=== PATIENT | male | born 1985 | race American Indian/Alaskan Native ===

== ENCOUNTER 2020-02-06 13:50 | Observation (INO) | payer MEDICAID ==
--- NOTE | 2020-02-06 15:04 | Emergency Department Report ---
ED Chest Pain HPI - General Chief Complaint: Chest Pain Stated Complaint: CHEST PAIN Time Seen by Provider: 02/06/20 15:02 Source: patient, EMS Mode of arrival: Stretcher Limitations: No Limitations - History of Present Illness Initial Comments: This is the 34-year-old male with a history of cerebral palsy and left hemiparesis/contraction. He states that he had the acute onset of chest pain at approximately 6 PM last night. Chest pain is persistent at that time he called EMS prior to arrival today. He states that it is a dull ache in the anterior chest which radiates down his right arm. He denies prior episodes of similar chest pain. He states that he was sweaty, short of breath and nauseated but did not vomit. He states he does not smoke. He denies a significant family history of coronary artery disease. He has no history of substance abuse. He has no history of venous thromboembolism. MD Complaint: chest pain -: Sudden (Acute but not abrupt) Onset: during rest Pain Location: substernal Pain Radiation: RUE Severity: moderate, severe Severity scale (0 -10): 8 Quality: aching Consistency: constant Improves With: nothing Worsens With: nothing re: nausea, diaphoresis (Sweating), dyspnea Treatments Prior to Arrival: none Aspirin use within the Past 7 Days: (0) No - Related Data Home Medications Medication Instructions Recorded Confirmed Last Taken Lacosamide [Vimpat] 200 mg PO BID 02/06/20 02/06/20 02/06/20 levETIRAcetam [Keppra TAB] 1,000 mg PO QDAY 02/06/20 02/06/20 02/06/20 levETIRAcetam [Keppra TAB] 1,500 mg PO QHS 02/06/20 02/06/20 02/05/20 Allergies Allergy/AdvReac Type Severity Reaction Status Date / Time No Known Allergies Allergy Verified 02/06/20 14:37 Heart Score - HEART Score History: Moderately suspicious EKG: Significant ST-depression Age: < 45 Risk factors: No known risk factors Troponin: < normal limit HEART Score: 3 - Critical Actions Critical Actions: 0-3 pts:0.9-1.7%risk of adverse cardiac event.Candidate for discharge ED Review of Systems ROS: Stated complaint: CHEST PAIN Other details as noted in HPI Constitutional: denies: chills, fever Eyes: denies: eye pain, eye discharge, vision change ENT: denies: ear pain, throat pain Respiratory: shortness of breath. denies: cough, wheezing Cardiovascular: chest pain. denies: palpitations Endocrine: no symptoms reported Gastrointestinal: nausea. denies: abdominal pain, diarrhea Genitourinary: denies: urgency, dysuria Musculoskeletal: denies: back pain, joint swelling, arthralgia Skin: denies: rash, lesions Neurological: denies: headache, weakness, paresthesias Psychiatric: denies: anxiety, depression Hematological/Lymphatic: denies: easy bleeding, easy bruising ED Past Medical Hx - Past Medical History Previous Medical History?: Yes Hx Seizures: Yes Additional medical history: cerebral palsy. LUE, LLE weakneess - Surgical History Past Surgical History?: No - Social History Smoking Status: Never Smoker Substance Use Type: None - Medications Home Medications: Home Medications Medication Instructions Recorded Confirmed Last Taken Type Lacosamide [Vimpat] 200 mg PO BID 02/06/20 02/06/20 02/06/20 History levETIRAcetam [Keppra TAB] 1,000 mg PO QDAY 02/06/20 02/06/20 02/06/20 History levETIRAcetam [Keppra TAB] 1,500 mg PO QHS 02/06/20 02/06/20 02/05/20 History ED Physical Exam - General Limitations: Physical Limitation General appearance: alert, in no apparent distress - Head Head exam: Present: atraumatic, normocephalic - Eye Eye exam: Present: normal appearance. Absent: scleral icterus - ENT ENT exam: Present: mucous membranes moist - Neck Neck exam: Present: normal inspection. Absent: tenderness, meningismus - Respiratory Respiratory exam: Present: normal lung sounds bilaterally. Absent: respiratory distress - Cardiovascular Cardiovascular Exam: Present: regular rate, normal rhythm. Absent: systolic murmur, diastolic murmur, rubs, gallop - GI/Abdominal GI/Abdominal exam: Present: soft, normal bowel sounds. Absent: distended, tenderness, guarding, rebound - Rectal Rectal exam: Present: deferred - Extremities Exam Extremities exam: Present: other (Contracted left upper extremity greater than left lower extremity) - Back Exam Back exam: Present: normal inspection - Neurological Exam Neurological exam: Present: alert, oriented X3, CN II-XII intact, motor sensory deficit - Psychiatric Psychiatric exam: Present: normal mood, flat affect - Skin Skin exam: Present: warm, dry, intact, normal color. Absent: rash ED Course Vital Signs 02/06/20 02/06/20 02/06/20 14:31 14:35 15:24 Temperature 98.6 F Pulse Rate 119 H 112 H 122 H Respiratory 25 H 20 26 H Rate Blood Pressure 130/92 Blood Pressure 130/92 [Left] O2 Sat by Pulse 97 92 100 Oximetry 02/06/20 02/06/20 02/06/20 15:30 16:00 16:30 Temperature Pulse Rate 110 H 86 132 H Respiratory 15 14 16 Rate Blood Pressure 136/94 121/86 126/104 Blood Pressure [Left] O2 Sat by Pulse 100 100 99 Oximetry - Reevaluation(s) Reevaluation #1: The patient's EKG was texted to the coil cleaner on-call Dr. Betancur. Serial EKG was obtained as well and reviewed. Force Variation Equipment Tender felt the EKGs were not consistent with STEMI. There was ST elevation in the anterior and inferolateral leads with no prior EKG for comparison. Possibility of pericarditis was entertained. A bedside echo was obtained emergently. This showed no pericardial fluid and no wall motion abnormality. It was concluded that the patient was not suffering from a STEMI. The cause of his chest pain is yet uncertain. He was admitted to the hospitalist service for further care and evaluation. 02/06/20 18:01 KATHIE score - Kathie Score Age > 65: (0) No Aspirin use within the Past 7 Days: (0) No 3 or more CAD Risk Factors: (0) No 2 or more Angina events in past 24 hrs: (0) No Known CAD with more than 50% Stenosis: (0) No Elevated Cardiac Markers: (0) No ST Deviation Greater than 0.5mm: (1) Yes KATHIE Score: 1 ED Medical Decision Making - Lab Data Result diagrams: 02/06/20 15:18 02/06/20 15:18 Laboratory Results - last 24 hr 02/06/20 02/06/20 02/06/20 15:18 15:18 15:18 WBC 8.4 RBC 6.22 H Hgb 14.3 Hct 45.0 MCV 72 L MCH 23 L MCHC 32 RDW 14.7 Plt Count 241 Lymph % (Auto) 8.0 L [place] % (Auto) 8.2 H Eos % (Auto) 2.5 Baso % (Auto) 0.3 Lymph # 0.7 L [place] # 0.7 Eos # 0.2 Baso # 0.0 Seg Neutrophils % 81.0 H Seg Neutrophils # 6.8 PT 13.6 INR 1.03 APTT 26.3 Sodium 140 Potassium 4.1 Chloride 98.2 Carbon Dioxide 29 Anion Gap 17 BUN 10 Creatinine 0.9 Estimated GFR > 60 BUN/Creatinine Ratio 11 Glucose 89 Calcium 10.3 H Total Bilirubin Direct Bilirubin Indirect Bilirubin AST ALT Alkaline Phosphatase Troponin T < 0.010 NT-Pro-B Natriuret Pep Total Protein Albumin Albumin/Globulin Ratio 02/06/20 02/06/20 15:18 15:18 WBC RBC Hgb Hct MCV MCH MCHC RDW Plt Count Lymph % (Auto) [place] % (Auto) Eos % (Auto) Baso % (Auto) Lymph # [place] # Eos # Baso # Seg Neutrophils % Seg Neutrophils # PT INR APTT Sodium Potassium Chloride Carbon Dioxide Anion Gap BUN Creatinine Estimated GFR BUN/Creatinine Ratio Glucose Calcium Total Bilirubin 0.70 Direct Bilirubin < 0.2 Indirect Bilirubin 0.5 AST 18 ALT 14 Alkaline Phosphatase 96 Troponin T NT-Pro-B Natriuret Pep 22.25 Total Protein 8.0 Albumin 4.8 Albumin/Globulin Ratio 1.5 - EKG Data -: EKG Interpreted by Me EKG shows normal: sinus rhythm Rate: tachycardia - EKG Data When compared to previous EKG there are: previous EKG unavailable Interpretation: other (Diffuse J-point elevation, or 2S ratio in V1 somewhat abnormal, rotation in the horizontal plane anterior, uncertain if early repolarization versus pericarditis versus other etiology) Critical care attestation.: If time is entered above; I have spent that time in minutes in the direct care of this critically ill patient, excluding procedure time. ED Disposition Clinical Impression: Abnormal EKG Chest pain Qualifiers: Chest pain type: unspecified Qualified Code(s): R07.9 - Chest pain, unspecified Cerebral palsy Qualifiers: Cerebral palsy type: unspecified type Qualified Code(s): G80.9 - Cerebral palsy, unspecified Disposition: OP ADMIT IP TO THIS HOSP Is pt being admited?: Yes Does the pt Need Aspirin: Yes Condition: Stable Instructions: Chest Pain (ED) Referrals: ROSA MOYA MD [Primary Care Provider] - 3-5 Days Time of Disposition: 18:08
[2020-02-06] MEDS ORDERED: ONDANSETRON 4 MG/2 ML INJ ONE (15:11)
[2020-02-06] MEDS ORDERED: MORPHINE 2 MG/1 ML INJ ONE (15:11)
[2020-02-06] MEDS ORDERED: MORPHINE 2 MG/1 ML INJ IV ONE ×2 (15:13→15:15)
[2020-02-06] MEDS ORDERED: ONDANSETRON 4 MG/2 ML INJ IV ONE ×2 (15:13→15:15)
--- NOTE | 2020-02-06 15:23 | Consultation ---
History of Present Illness Consult date: 02/06/20 Consult reason: chest pain History of present illness: Pt is a 34 y.o. AA male with a past medical hx of cerebral palsy and seizures. He is previously unknown to our practice. Pt presented c/o constant "stabbing" pain in the center of his chest w/radiation to RUE since yesterday around 6pm. Pain is reproducible upon palpation. No relieving factors. Pt denies palpitations, diaphoresis, dizziness, lightheadedness, syncope, SOB, cough, orthopnea/PND, edema, claudication, N/V, and fever/chills. Trop neg x 1. No acute ischemic changes on ECG. CXR reveals no acute findings. Past History Past Medical History: seizures, other (cerebral palsy) Social history: denies: smoking, alcohol abuse Medications and Allergies Allergies Allergy/AdvReac Type Severity Reaction Status Date / Time No Known Allergies Allergy Verified 02/06/20 14:37 Review of Systems Constitutional: no fever, no chills, no sweats Ears, nose, mouth and throat: no tinnitis, no nasal congestion, no nasal discharge, no epistaxis, no bleeding gums, no dysphagia, no sore throat Cardiovascular: chest pain, no orthopnea, no palpitations, no syncope, no lightheadedness Respiratory: no cough, no shortness of breath Gastrointestinal: no abdominal pain, no nausea, no vomiting, no diarrhea, no constipation Genitourinary Male: no dysuria, no flank pain Musculoskeletal: no frequent falls Integumentary: no rash, no wounds Neurological: no head injury, no numbness, no tingling, no seizures, no vertigo, no headaches Endocrine: no cold intolerance, no heat intolerance Hematologic/Lymphatic: no easy bruising, no easy bleeding Allergic/Immunologic: no urticaria Physical Examination Last Vital Signs Temp 98.6 F 02/06/20 14:35 Pulse 112 H 02/06/20 14:35 Resp 20 02/06/20 14:35 BP 130/92 02/06/20 14:35 Pulse Ox 92 02/06/20 14:35 General appearance: mild distress HEENT: Positive: EOMI, Normocephaly, Mucus Membranes Moist Neck: Positive: neck supple, trachea midline. Negative: JVD/HJR Cardiac: Positive: S1/S2. Negative: Audible Murmur Lungs: Positive: clear to auscultation (bilaterally) Neuro: Negative: Motor Function Intact, Coordination Normal Abdomen: Positive: Soft, Active Bowel Sounds. Negative: Tender Skin: Negative: Rash, Wound Musculoskeletal: No Pain Extremities: Present: upper extr. pulses, lower extr. pulses. Absent: edema Results 02/06/20 15:18 02/06/20 15:18 - Imaging and Cardiology Echo: pending EKG: report reviewed, image reviewed EKG interpretations - EKG Sinus rhythms and dysrhythmias: sinus tachycardia Repolarization changes or abnormalities: nonspecific abnormality, ST segment, and/or T wave (diffuse ST elev - ?pericarditis ) Assessment and Plan ACS ruled out. Initiate PO Cardizem 30mg q8h. Obtain echo. Plan for Lexiscan MPI stress test in AM. NPO after midnight. Pt seen in conjunction with Dr. Betancur, who agrees with the assessment and plan of care. - Patient Problems (1) Chest pain Onset Date: ~02/05/20 Status: Acute (2) Sinus tachycardia Status: Acute (3) Cerebral palsy Status: Chronic (4) Seizure disorder Status: Chronic
[2020-02-06] MEDS ORDERED: SODIUM CHLORIDE 0.9% 1000 ML 1,000 ML IV ONE (15:24)
[2020-02-06] MEDS ORDERED: ASPIRIN 325 MG TAB ONE (15:38)
[2020-02-06] MEDS ORDERED: ASPIRIN 325 MG TAB PO ONE (15:45)
--- NOTE | 2020-02-06 15:48 | XRay Report ---
CHEST 1 VIEW INDICATION: Chest Pain. COMPARISON: 03/16/2010 FINDINGS: SUPPORT DEVICES: None. HEART: Within normal limits. LUNGS/PLEURA: No acute air space or interstitial disease. ADDITIONAL FINDINGS: None. IMPRESSION: 1. No acute findings. Signer Name: Theron Deshpande MD Signed: 02/06/2020 3:44 PM Workstation Name: [id number]
[2020-02-06 15:53] LABS: Basophils % (Auto) 0.3 % (0.0-1.8); Eosinophils # (Auto) 0.2 K/mm3 (0.0-0.4); Eosinophils % (Auto) 2.5 % (0.0-4.3); Hemoglobin 14.3 gm/dl (11.8-15.2); Lymphocytes # (Auto) 0.7 K/mm3 (1.2-5.4); Mean Corpuscular HGB Conc 32 % (32-34); Mean Corpuscular Volume 72 fl (84-94); Monocytes # (Auto) 0.7 K/mm3 (0.0-0.8); Monocytes % (Auto) 8.2 % (0.0-7.3); Platelet Count 241 K/mm3 (140-440); Red Blood Count 6.22 M/mm3 (3.65-5.03); Red Cell Distribution Width 14.7 % (13.2-15.2)
[2020-02-06 16:00] LABS: BUN/Creatinine Ratio 11; Blood Urea Nitrogen 10 mg/dL (9-20); Calcium 10.3 mg/dL (8.4-10.2); Hemolysis Index 9
[2020-02-06 16:04] LABS: Alanine Aminotransferase 14 units/L (7-56); Albumin 4.8 g/dL (3.9-5); Bilirubin,Direct < 0.2 mg/dL (0-0.2)
[2020-02-06 16:07] LABS: INR 1.03 (0.87-1.13); Partial Thromboplastin Time 26.3 Sec. (24.2-36.6)
[2020-02-06] MEDS ORDERED: ACETAMINOPHEN 325 MG TAB PO PRN (18:41)
[2020-02-06] MEDS ORDERED: ASPIRIN 81 MG TAB CHEW PO STA (18:41)
[2020-02-06] MEDS ORDERED: ONDANSETRON 4 MG/2 ML INJ IV PRN (18:41)
[2020-02-06] MEDS ORDERED: NITROGLYCERIN 0.4 MG TAB SUBL SL PRN (18:41)
--- NOTE | 2020-02-06 18:41 | History and Physical Report ---
History of Present Illness Chief complaint: My chest hurts History of present illness: 34 YO Male with Cerebral Palsy, Seizure Disorder, Severe Malnutrition, Debility, Contracture presents to ED for evaluation. Patient states that he has experienced pain in his chest over the past 2 days with acute onset of worsening pain that began approximately 1800 hrs. overnight. Patient awoke from sleep this morning with persistently worsening pain in his chest. Patient states that pain is 8/10, constant, substernal, worsened during exertion, relieved with rest, associated with shortness of breath, associated with diaphoresis, constant, crushing in nature,. EMS was notified and upon arrival the patient was found to be in distress. The patient was transported to [facility] for further care and evaluation. Patient seen and evaluated in the emergency department. Lab and imaging studies reviewed. Patient found to have clinical findings consistent with stable angina as well as diastolic heart failure. The patient was admitted to telemetry and initiated on chest pain protocol due to increased risk of cardiac decompensation. An echocardiogram was ordered and is pending at the time of admission. Cardiology team consulted in ED. Patient denies fever, chills, palpitations, productive cough, skin rash, recent ill contacts, or known exposure to COVID-19. No prior admission for review. No medication listed for reconciliation at time of admission. Past History Past Medical History: seizures, other (cerebral palsy) Past Surgical History: No surgical history, Other (Reviewed) Social history: single. denies: smoking, alcohol abuse Family history: hypertension Medications and Allergies Allergies Allergy/AdvReac Type Severity Reaction Status Date / Time No Known Allergies Allergy Verified 02/06/20 14:37 Home Medications Medication Instructions Recorded Confirmed Last Taken Type Lacosamide [Vimpat] 200 mg PO BID 02/06/20 02/06/20 02/06/20 History levETIRAcetam [Keppra TAB] 1,000 mg PO QDAY 02/06/20 02/06/20 02/06/20 History levETIRAcetam [Keppra TAB] 1,500 mg PO QHS 02/06/20 02/06/20 02/05/20 History Active Meds: Active Medications Diltiazem HCl (Cardizem) 30 mg PO Q8H BRIANNA Sodium Chloride (Nacl 0.9% 1000 Ml) 1,000 mls @ 125 mls/hr IV ONCE ONE Stop: 02/06/20 23:23 Last Admin: 02/06/20 16:44 Dose: 125 mls/hr Documented by: Review of Systems Constitutional: no weight loss, no weight gain, no fever, no chills Ears, nose, mouth and throat: no ear pain, no ear discharge, no tinnitis Cardiovascular: chest pain, decreased exercise tolerance, no orthopnea, no palpitations, no rapid/irregular heart beat, no syncope Respiratory: no cough, no cough with sputum, no hemoptysis, no shortness of breath Gastrointestinal: no abdominal pain, no nausea, no vomiting, no change in bowel habits, no hematemesis Genitourinary Male: no hematuria, no flank pain, no discharge, no urinary hesitancy, no nocturia Rectal: no pain, no incontinence, no bleeding Musculoskeletal: no neck pain, no shooting arm pain, no arm numbness/tingling, no low back pain Integumentary: no rash, no pruritis, no redness, no sores, no wounds, no jaundice Neurological: no paralysis, no weakness, no tingling Psychiatric: no memory loss, no change in sleep habits, no sleep disturbances, no insomnia, no hypersomnia, no change in appetite, no change in libido Endocrine: no cold intolerance, no polydipsia, no polyuria, no nocturia, no excessive sweating Hematologic/Lymphatic: no easy bruising, no easy bleeding, no lymphadenopathy Allergic/Immunologic: no urticaria, no persistent infections, no angioedema Exam - Constitutional Vitals: Temp Pulse Resp BP Pulse Ox 98.6 F 132 H 16 126/104 99 02/06/20 14:35 02/06/20 16:30 02/06/20 16:30 02/06/20 16:30 02/06/20 16:30 General appearance: Present: mild distress - EENT Eyes: Present: PERRL ENT: hearing intact, clear oral mucosa - Neck Neck: Present: supple, normal ROM - Respiratory Respiratory effort: normal Respiratory: bilateral: CTA - Cardiovascular Heart Sounds: Present: S1 & S2. Absent: rub, click - Extremities Extremities: pulses symmetrical, No edema Peripheral Pulses: within normal limits - Abdominal General gastrointestinal: Present: soft, non-tender, non-distended, normal bowel sounds Male genitourinary: Present: normal - Integumentary Integumentary: Present: clear, warm, dry - Musculoskeletal Musculoskeletal: left sided weakness - Psychiatric Psychiatric: appropriate mood/affect, intact judgment & insight - Neurologic Neurologic: CNII-XII intact, moves all extremities HEART Score - HEART Score EKG: Significant ST-depression Age: < 45 Risk factors: No known risk factors Troponin: Troponin T < 0.010 ng/mL (0.00-0.029) 02/06/20 15:18 Troponin: < normal limit - Critical Actions Critical Actions: 0-3 pts:0.9-1.7%risk of adverse cardiac event.Candidate for discharge Results - Labs CBC & Chem 7: 02/06/20 15:18 02/06/20 15:18 Labs: Abnormal lab results 02/06/20 02/06/20 Range/Units 15:18 15:18 RBC 6.22 H (3.65-5.03) M/mm3 MCV 72 L (84-94) fl MCH 23 L (28-32) pg Lymph % (Auto) 8.0 L (13.4-35.0) % [place] % (Auto) 8.2 H (0.0-7.3) % Lymph # 0.7 L (1.2-5.4) K/mm3 Seg Neutrophils % 81.0 H (40.0-70.0) % Calcium 10.3 H (8.4-10.2) mg/dL Assessment and Plan - Patient Problems (1) Angina at rest Current Visit: Yes Status: Acute Plan to address problem: Serial cardiac enzymes, EKG, telemetry, cardiology consulted in ED, further cardiac testing in a.m. as per cardiology team, morphine, supplemental oxygen, n itro, aspirin, supportive care. (2) Diastolic CHF Current Visit: Yes Status: Acute Qualifiers: Heart failure chronicity: acute Qualified Code(s): I50.31 - Acute diastolic (congestive) heart failure Plan to address problem: Strict I's/O, daily weight, monitor urine output every shift, monitor fluid balance, afterload reduction, blood pressure control, echocardiogram ordered in ED. Cardiology consulted. (3) Cerebral palsy Current Visit: Yes Status: Chronic Qualifiers: Cerebral palsy type: unspecified type Qualified Code(s): G80.9 - Cerebral palsy, unspecified Plan to address problem: Chronic, supportive care. (4) Seizure disorder Current Visit: No Status: Chronic Plan to address problem: Continue antiepileptic therapy, seizure precautions, supportive care. (5) DVT prophylaxis Current Visit: Yes Status: Acute Plan to address problem: SCD to bilateral lower extremities while in bed
[2020-02-06] MEDS: dilTIAZem 30 MG TAB PO SCH ×2 (18:51→22:04)
[2020-02-06] MEDS ORDERED: LEVETIRACETAM 1500 MG PO SCH (22:00)
[2020-02-06] MEDS ORDERED: levETIRAcetam 500 MG TAB PO SCH (22:00)
[2020-02-06] MEDS ORDERED: NON-FORMULARY EACH (Lacosamide [Vimpat] 200 MG) PO SCH (22:00)
[2020-02-06] MEDS: LACOSAMIDE 100 MG TAB PO SCH (22:03)
[2020-02-07] MEDS: dilTIAZem 30 MG TAB PO SCH ×2 (01:10→13:03)
[2020-02-07 02:54] LABS: BUN/Creatinine Ratio 11; Blood Urea Nitrogen 10 mg/dL (9-20); Calcium 9.5 mg/dL (8.4-10.2); Hemolysis Index 11
[2020-02-07 05:02] LABS: Chol/HDL Ratio 1.96 %
[2020-02-07] MEDS ORDERED: REGADENOSON 0.4 MG/5 ML INJ IV ONE (07:10)
[2020-02-07] MEDS ORDERED: levETIRAcetam 500 MG TAB PO SCH (10:00)
[2020-02-07] MEDS ORDERED: NON-FORMULARY EACH (Levetiracetam [Keppra Tab] 1,000 MG) PO SCH (10:00)
--- NOTE | 2020-02-07 12:27 | Discharge Summary ---
Providers - Providers Date of Admission: 02/06/20 18:41 Date of discharge: 02/07/20 Attending physician: MITCHELL BIRMINGHAM 02/06/20 Consult to Cardiac Rehabilitation [CONS] Routine Reason For Exam: Phase I 02/06/20 18:03 Consult to Physician [CONS] Stat Comment: Consulting Provider: GILBERT CONDON Physician Instructions: Reason For Exam: Chest pain/abnormal EKG Primary [facility] Hospitalization Condition: Stable Pertinent studies: Chest x-ray, MPI stress test, 2D echocardiogram Hospital course: Patient is a 34 y.o. AA male with a past medical hx of cerebral palsy and seizures presented with c/o constant "stabbing" pain in the center of his chest w/radiation to RUE for one day. Pain is reproducible upon palpation. Trop neg x 3. No acute ischemic changes on ECG. CXR reveals no acute findings. Stress test 02/07/2020 - negative for ischemia. ACS ruled out. Chest pain is atypical, reproducible via palpation. Suspected underlying pericarditis. cardiology Recommend anti-inflammatory meds on discharge. Echo findings noted - 02/06/2020: EF 55-60%, trace MR, mild TR, mild ND. Patient was discharged home in stable condition and recommended to follow-up outpatient with cardiology in 1 to 2 weeks ([phone]). Discharge diagnosis: Acute chest pain, likely due to acute pericarditis Sinus tachycardia Cerebral palsy Seizure disorder Disposition: - TO HOME OR SELFCARE Time spent for discharge: 34 minutes Core Measure Documentation - Palliative Care Palliative Care/ Comfort Measures: Not Applicable - Core Measures Any of the following diagnoses?: none Exam - Constitutional Vitals: Temp Pulse Resp BP Pulse Ox 98.0 F 57 L 18 125/101 100 02/07/20 04:17 02/07/20 05:32 02/07/20 04:17 02/07/20 04:17 02/07/20 07:50 General appearance: Present: no acute distress - EENT Eyes: Present: PERRL ENT: hearing intact, clear oral mucosa - Neck Neck: Present: supple, normal ROM - Respiratory Respiratory effort: normal Respiratory: bilateral: CTA - Cardiovascular Heart Sounds: Present: S1 & S2. Absent: rub, click - Extremities Extremities: pulses symmetrical, No edema, abnormal (Contracted left upper extremity greater than left lower extremity) Peripheral Pulses: within normal limits - Abdominal General gastrointestinal: Present: soft, non-tender, non-distended, normal bowel sounds - Integumentary Integumentary: Present: clear, warm, dry - Musculoskeletal Musculoskeletal: generalized weakness - Psychiatric Psychiatric: appropriate mood/affect - Neurologic Neurologic: CNII-XII intact, moves all extremities Plan Activity: fall precautions Weight Bearing Status: Non-Weight Bearing Diet: low fat Follow up with: RADHA PEREIRAMINGO MD JANET [Primary Care Provider] - 3-5 Days GILBERT CONDON MD [Staff Physician] - 7 Days Prescriptions: Ibuprofen [Motrin] 800 mg PO Q8HR PRN #20 tablet PRN Reason: Pain, Moderate (4-6) Pantoprazole [Protonix] 40 mg PO QDAY #30 tablet
[2020-02-07] MEDS: LACOSAMIDE 100 MG TAB PO SCH (13:03)
[2020-02-07 13:04] VITALS: BP 112/78
--- NOTE | 2020-02-07 14:16 | Progress Note ---
Assessment and Plan Stress test 02/07/2020 - negative for ischemia. ACS ruled out. Chest pain is atypical, reproducible via palpation. Suspect underlying pericarditis. Recommend anti-inflammatory meds -discussed w/Primary. Echo findings noted - 02/06/2020: EF 55-60%, trace MR, mild TR, mild ID. Currently stable cardiac status. Pt may be discharged from a Cardiology standpoint. D/c PO Cardizem upon discharge. Recommend f/u with Primary within 1-2 weeks ([phone]). Pt seen in conjunction with Dr. Betancur, who agrees with the assessment and plan of care. - Patient Problems (1) Atypical chest pain Current Visit: Yes Status: Acute (2) Pericarditis Current Visit: Yes Status: Suspected (3) Sinus tachycardia Current Visit: Yes Status: Resolved (4) Cerebral palsy Current Visit: Yes Status: Chronic Qualifiers: Cerebral palsy type: unspecified type Qualified Code(s): G80.9 - Cerebral palsy, unspecified (5) Seizure disorder Current Visit: No Status: Chronic Subjective Date of service: 02/07/20 Principal diagnosis: Chest Pain Interval history: Pt lying in bed comfortably upon exam. Still c/o chest pain, 05/21 this AM. Pt denies SOB or any additional cardiac complaints. Tele reviewed - NSR 60s with noted dips in 40s overnight. Objective Last Vital Signs Temp 97.2 F L 02/07/20 08:36 Pulse 72 02/07/20 13:03 Resp 18 02/07/20 08:36 BP 112/78 02/07/20 13:03 Pulse Ox 100 02/07/20 08:36 - Physical Examination General: No Apparent Distress HEENT: Positive: EOMI, Normocephaly, Mucus Membranes Moist Neck: Positive: neck supple, trachea midline. Negative: JVD/HJR Cardiac: Positive: Reg Rate and Rhythm, S1/S2 Lungs: Positive: clear to auscultation (bilaterally) Neuro: Positive: Grossly Intact. Negative: Motor Function Intact, Coordination Normal Abdomen: Positive: Soft, Active Bowel Sounds. Negative: Tender Skin: Negative: Rash, Wound Musculoskeletal: No Pain Extremities: Present: upper extr. pulses, lower extr. pulses. Absent: edema - Labs and Meds Cardiac Enzymes 02/06/20 Range/Units 15:18 AST 18 (5-40) units/L Coagulation 02/06/20 Range/Units 15:18 PT 13.6 (12.2-14.9) Sec. INR 1.03 (0.87-1.13) APTT 26.3 (24.2-36.6) Sec. Lipids 02/06/20 Range/Units 23:15 Triglycerides 32 (2-149) mg/dL Cholesterol 116 (50-199) mg/dL HDL Cholesterol 59 (40-59) mg/dL Cholesterol/HDL Ratio 1.96 % CBC 02/06/20 Range/Units 15:18 WBC 8.4 (4.5-11.0) K/mm3 RBC 6.22 H (3.65-5.03) M/mm3 Hgb 14.3 (11.8-15.2) gm/dl Hct 45.0 (35.5-45.6) % Plt Count 241 (140-440) K/mm3 Lymph # 0.7 L (1.2-5.4) K/mm3 Addison # 0.7 (0.0-0.8) K/mm3 Eos # 0.2 (0.0-0.4) K/mm3 Baso # 0.0 (0.0-0.1) K/mm3 Comprehensive Metabolic Panel 02/06/20 02/06/20 02/07/20 Range/Units 15:18 15:18 02:09 Sodium 140 142 (137-145) mmol/L Potassium 4.1 4.5 (3.6-5.0) mmol/L Chloride 98.2 99.0 (98-107) mmol/L Carbon Dioxide 29 28 (22-30) mmol/L BUN 10 10 (9-20) mg/dL Creatinine 0.9 0.9 (0.8-1.5) mg/dL Glucose 89 71 L (75-100) mg/dL Calcium 10.3 H 9.5 (8.4-10.2) mg/dL Direct Bilirubin < 0.2 (0-0.2) mg/dL Indirect Bilirubin 0.5 mg/dL AST 18 (5-40) units/L ALT 14 (7-56) units/L Alkaline Phosphatase 96 (35-129) units/L Total Protein 8.0 (6.3-8.2) g/dL Albumin 4.8 (3.9-5) g/dL - Imaging and Cardiology EKG: report reviewed, image reviewed Pharmacologic stress test: report reviewed (02/07/2020 - negative for ischemia) Echo: report reviewed (02/06/2020: EF 55-60%, trace MR, mild TR, mild ID) - Telemetry EKG Rhythm: Sinus Rhythm - EKG Sinus rhythms and dysrhythmias: sinus tachycardia Repolarization changes or abnormalities: nonspecific abnormality, ST segment, and/or T wave (diffuse ST elev - ?pericarditis )
--- NOTE | 2020-02-07 18:24 | Treadmill Report ---
NUCLEAR PERFUSION STUDY REASON FOR STUDY: Chest pain. READING PHYSICIAN: Dr. Betancur. IMAGING PROTOCOL: The patient received 10 mCi of Technetium 99m Tetrofosmin for resting image and 28 mCi of Technetium 99m Tetrofosmin for stress imaging. The imaging for the whole procedure was completed 30-90 minutes following the initial injection of Technetium 99m Tetrofosmin. The SPECT imaging in the 180 degree arc was performed in the right anterior oblique projection. Computerized reconstruction of the images was performed for analysis. IMAGING RESULTS: Normal cavity size from stress to rest. Normal distribution of radionuclide in the anterior, inferior, septal, and apical regions. Gated SPECT, EF 63% with no wall motion abnormality. The patient infused Lexiscan with no EKG changes. SUMMARY: 1. Negative Lexiscan EKG. 2. Normal rest and stress myocardial perfusion scan. No significant ischemia. No wall motion abnormality. Gated SPECT, EF 63%. JOB# [id number] LEVAR/WILY
== END 2020-02-07 16:10 | disposition home or self-care (01) ==
LOC: ED 13:50 → INTOOBSV 18:41 → 4A 18:41
PROVIDERS: ADMIT Internal Medicine; ATTEND Internal Medicine
DX: I20.9 Angina pectoris, unspecified (principal); I50.31 Acute diastolic (congestive) heart failure; G80.9 Cerebral palsy, unspecified; G40.909 Epilepsy, unspecified, not intractable, without status epilepticus; R00.1 Bradycardia, unspecified; Z79.899 Other long term (current) drug therapy
CPT/HCPCS: 36415; 71045; 78452; 80048; 80061; 80076; 83880; 84484; 85025; 85610; 85730; 93005; 93017; 93306; 94760; 96374; 96375; 99285; A9502; G0378; J2270; J2405; J2785; J7030